=== PATIENT | female | born 1955 | race Asian ===

== ENCOUNTER 2017-08-09 11:20 | Emergency (ER) | payer MEDICAID ==
[~2017-08-09] VITALS: Ht 152.4 cm; Wt 44.9 kg
--- NOTE | 2017-08-09 11:29 | NUR ---
DR MOONEY AT BEDSIDE FOR EVAL.
[2017-08-09] MEDS ORDERED: ONDANSETRON HCL/PF 4 MG/2 ML VIAL IVP ONE (11:30)
[2017-08-09] MEDS ORDERED: GLUCAGON,HUMAN RECOMBINANT 1 MG/VIAL VIAL IV ONE (11:30)
--- NOTE | 2017-08-09 11:30 | NUR ---
PT AMBULATORY TO ER BED 10. C/O CHOKING SENSATION, EPIGASTRIC PAIN AND BURNING. STATES UNABLE TO SWALLOW. APPEARS ANXIOUS. GOWNED AND PLACED ON MONITOR. NAD NOTED. AWAITING MD MEADE.
--- NOTE | 2017-08-09 11:42 | NUR ---
RADIOLOGY AT BEDSIDE FOR CHEST XRAY.
[2017-08-09] MEDS ORDERED: GLUCAGON,HUMAN RECOMBINANT 1 MG/VIAL VIAL ONE (11:44)
[2017-08-09] MEDS ORDERED: ONDANSETRON HCL/PF 4 MG/2 ML VIAL ONE (11:45)
[2017-08-09 11:55] LABS: BASOPHILS % (AUTO) 0.5 % (0.0-2.0); EOSINOPHILS # (AUTO) 0.1 /CMM (0.0-0.7); HEMATOCRIT 42 % (33-45); HEMOGLOBIN 14.5 g/dL (11.5-14.8); LYMPHOCYTES # (AUTO) 3.1 /CMM (0.8-4.8); LYMPHOCYTES % (AUTO) 46.5 % (20.0-44.0); MEAN CORPUSCULAR HEMOGLOBIN 29 PG (26.0-33.0); MEAN CORPUSCULAR HGB CONC 34 g/dl (31.0-36.0); MEAN CORPUSCULAR VOLUME 85 fL (82-100); MONOCYTES # (AUTO) 0.4 /CMM (0.1-1.30); MONOCYTES % (AUTO) 6.8 % (2.0-12.0); NEUTROPHILS # (AUTO) 2.9 /CMM (1.8-8.9); NEUTROPHILS % (AUTO) 44.2 % (43.0-81.0); PLATELET COUNT (AUTO) 306 /CMM (150-450); RDW COEFFICIENT OF VARIATION 12.8 (11.5-15.0); WHITE BLOOD COUNT (AUTO) 6.5 K/uL (4.3-11.0)
[2017-08-09 12:05] LABS: CALCIUM, SERUM 9.7 mg/dL (8.5-10.1); CARBON DIOXIDE 28 mmol/L (21-32); CHLORIDE 102 mmol/L (98-107); CREATININE 0.7 mg/dL (0.6-1.3); GLUCOSE 114 mg/dL (74-106); POTASSIUM 3.3 mmol/L (3.5-5.1); SODIUM SERUM 137 mmol/L (136-145); UREA NITROGEN, BLOOD 16 mg/dL (7-18)
[2017-08-09 12:11] LABS: ALANINE AMINOTRANSFERASE 29 U/L (12-78); ALBUMIN 4.3 g/dL (3.4-5.0); ALKALINE PHOSPHATASE 63 U/L (46-116); ASPARTATE AMINOTRANSFERASE 22 U/L (15-37); BILIRUBIN,DIRECT 0.1 mg/dL (0.0-0.2); BILIRUBIN,TOTAL 0.6 mg/dL (0.2-1.0); LIPASE 182 U/L (73-393); TOTAL PROTEIN, SERUM 8.1 g/dL (6.4-8.2)
[2017-08-09 12:13] LABS: TROPONIN I < 0.017 ng/mL (0.00-0.056)
--- NOTE | 2017-08-09 13:36 | NUR ---
Patient discharged to home in stable condition. Written and verbal after care instructions given. Patient verbalizes understanding of instruction.IV removed. Catheter intact and site benign. Pressure and 4x4 applied to site. No bleeding noted.
[2017-08-09 13:37] VITALS: BP 142/87
== END 2017-08-09 13:38 | disposition home or self-care (01) ==
LOC: ER 11:22
DX: R10.13 Epigastric pain (principal); F41.9 Anxiety disorder, unspecified; I10 Essential (primary) hypertension; Z88.6 Allergy status to analgesic agent
CPT/HCPCS: 36415; 71045-TC; 80048-TC; 80076-TC; 83690-TC; 84484-TC; 85025-TC; A4606; J1610; J2405; Z7610

== ENCOUNTER 2022-03-06 16:39 | Emergency (ER) | payer OTHER ==
[~2022-03-06] VITALS: Ht 162.6 cm; Wt 49.9 kg
--- NOTE | 2022-03-06 17:53 | NUR ---
STREP SWAB OBTAINED AND SENT TO LAB
[2022-03-06] MEDS ORDERED: AZIT250T PO (18:11)
--- NOTE | 2022-03-06 18:36 | NUR ---
Patient discharged to home in stable condition. Written and verbal after care instructions given. Patient verbalizes understanding of instruction.
[2022-03-06 18:37] VITALS: BP 131/69
== END 2022-03-06 18:37 | disposition home or self-care (01) ==
LOC: ER 16:46
DX: J20.9 Acute bronchitis, unspecified (principal); Z20.822 Contact with and (suspected) exposure to COVID-19; I10 Essential (primary) hypertension; E78.5 Hyperlipidemia, unspecified
CPT/HCPCS: 99284; 71045; 87426; 87070; 87880; C9803; 86403-TC